=== PATIENT | female | born 1990 | race Caucasian/White ===

== ENCOUNTER 2023-10-07 18:02 | Emergency (ER) | payer OTHER ==
[~2023-10-07] VITALS: Ht 152.4 cm; Wt 68.0 kg
[2023-10-07 18:02] VITALS: BP 140/80; PULSE 108; RESP 16; TEMP 98.6; O2SAT 99
[2023-10-07 18:10] VITALS: TEMP 98.6
[2023-10-07 19:03] LABS: BASOPHILS # (AUTO) 0.1 K/uL (0.00-0.22); BASOPHILS % (AUTO) 0.4 % (0.0-2.0); EOSINOPHILS # (AUTO) 0.2 K/uL (0-0.4); EOSINOPHILS % (AUTO) 0.8 % (0.0-4.0); HEMATOCRIT 36.3 % (36-48); HEMOGLOBIN 11.5 g/dL (12.0-16.0); LYMPHOCYTES # (AUTO) 4.8 K/uL (2.5-16.5); LYMPHOCYTES % (AUTO) 24.7 % (20.5-51.1); MEAN CORPUSCULAR HEMOGLOBIN 24 pg (27-31); MEAN CORPUSCULAR HGB CONC 32 g/dL (33-37); MEAN CORPUSCULAR VOLUME 74.9 fL (80-94); MONOCYTES # (AUTO) 0.9 K/uL (0.8-1.0); MONOCYTES % (AUTO) 4.7 % (1.7-9.3); NEUTROPHILS # (AUTO) 13.5 K/uL (1.8-7.7); PLATELET COUNT (AUTO) 770 K/uL (140-450); RED BLOOD CELL COUNT(AUTO) 4.85 MIL/uL (4.20-5.40); WHITE BLOOD COUNT (AUTO) 19.4 K/uL (4.8-10.8)
[2023-10-07] MEDS: ONDANSETRON 4 MG/2 ML VIAL IVP ONE (19:04)
[2023-10-07] MEDS: NACL 0.9% 1,000 ML IV SCH (19:04)
[2023-10-07 19:14] LABS: ANION GAP 16.8 (8-16); CALCIUM 8.4 mg/dL (8.5-10.1); CARBON DIOXIDE 22.1 mmol/L (21-32)
[2023-10-07 19:16] LABS: POTASSIUM 2.9 mmol/L (3.5-5.1)
[2023-10-07 19:26] LABS: ALBUMIN 3.8 g/dL (3.4-5.0); TOTAL BILIRUBIN 0.1 mg/dL (0.0-1.0); TOTAL PROTEIN, SERUM 7.9 g/dL (6.4-8.2)
[2023-10-07] MEDS: KETOROLAC 30 MG/ML VIAL IVP ONE (19:34)
[2023-10-07 19:38] VITALS: BP 109/67; PULSE 98; RESP 22; O2SAT 100
[2023-10-07 19:41] LABS: NEUTROPHILS % (AUTO) 69.4 % (42.2-75.2)
[2023-10-07] MEDS: POTASSIUM CHLORIDE 10 MEQ TABER PO ONE (20:00)
[2023-10-07] MEDS ORDERED: ACET-8905 PO (20:38)
[2023-10-07] MEDS ORDERED: IBUP-2213 PO (20:38)
[2023-10-07] MEDS ORDERED: ONDA8TAB87 PO (20:38)
== END 2023-10-07 20:50 | disposition home or self-care (01) ==
LOC: MED 18:02
DX: N83.201 Unspecified ovarian cyst, right side (principal)
CPT/HCPCS: 36415; 74176; 76856; 80048; 80076; 81025; 82948; 83690; 84703; 85025; 96361; 96374; 96375; 99285; J1885; J2405; Q0092; J7030